=== PATIENT | female | born 1950 | race American Indian/Alaskan Native ===

== ENCOUNTER 2019-11-30 16:29 | Emergency (ER) | payer OTHER, BC ==
[2019-11-30 16:46] VITALS: BP 141/75; PULSE 71; TEMP 98; BMI 25.6
[2019-11-30] MEDS ORDERED: ASPIRIN 81 MG CHEWABLE TABLETS PO ONE (16:52)
[2019-11-30] MEDS ORDERED: ASPIRIN 81 MG CHEWABLE TABLETS ONE (17:33)
[2019-11-30 17:43] LABS: BASO % 0.9 % (0-2.0); HEMATOCRIT 35.2 % (32.4-45.2); LYMPH % 43.3 % (8-40); MCH 29.2 pg (25.7-33.7); MEAN CELL VOLUME 85.9 fl (80-96); MEAN PLT VOLUME 8.3 fl (7.5-11.1); MONO % 7.2 % (3.8-10.2); NEUT % 47.6 % (42.8-82.8); PLATELET COUNT 274 K/MM3 (134-434); RDW 12.4 % (11.6-15.6); WHITE BLOOD COUNT 7.6 K/mm3 (4.0-10.8)
--- NOTE | 2019-11-30 17:48 | PDOC ---
Documentation entered by Kaylyn Hdz SCRIBE, acting as scribe for Fatimah Sanchez MD. Fatimah Sanchez MD: This documentation has been prepared by the [email or web address], Kaylyn Hdz SCRIBE, under my direction and personally reviewed by me in its entirety. I confirm that the documentation accurately reflects all work, treatment, procedures, and medical decision making performed by me. History of Present Illness - General Chief Complaint: Chest Pain Stated Complaint: CHEST PAIN X 3 DAYS Time Seen by Provider: 11/30/19 16:34 History Source: Patient Exam Limitations: No Limitations - History of Present Illness Initial Comments: 11/30/19 17:07 The patient is a 69-year-old female with a past medical history significant for HTN, HLD, hypothyroidism, and daily use of 81mg ASA (reports taking it today) who presents to the emergency department with chest pain. The patient presents with 3 days of constant chest pain associated with back pain and shortness of breath, which is aggravated with ambulation. The patient describes the pain as poking in quality. The patient reports taking Tums and Tylenol for the symptoms with pain improvement during the night time, however, states the pain presents again in the morning. The patient reports a recent stress test about a year ago, which was significant for carotid blockage. Denies prior similar pain. Allergies: shellfish derived. Social history: Denies current or history of tobacco use. PCP: Dr. Rachana Henry. Past History - Medical History Allergies/Adverse Reactions: Allergies Allergy/AdvReac Type Severity Reaction Status Date / Time shellfish derived Allergy Verified 11/30/19 16:31 Home Medications: Ambulatory Orders Aspirin [ASA -] 81 mg PO DAILY 11/30/19 Chlorthalidone 12.5 mg PO DAILY 11/30/19 Levothyroxine Sodium [Synthroid] 88 mcg PO DAILY 11/30/19 Rosuvastatin Calcium [Crestor] 20 mg PO DAILY 11/30/19 Review of Systems - Review of Systems Able to Perform ROS?: Yes Comments:: 11/30/19 17:07 GENERAL/CONSTITUTIONAL: No fever or chills. No weakness. HEAD, EYES, EARS, NOSE AND THROAT: No change in vision. No ear pain or discharge. No sore throat. CARDIOVASCULAR: +chest pain. +shortness of breath. RESPIRATORY: No cough, wheezing, or hemoptysis. GASTROINTESTINAL: No nausea, vomiting, diarrhea or constipation. GENITOURINARY: No dysuria, frequency, or change in urination. MUSCULOSKELETAL: +back pain. No joint or muscle swelling or pain. No neck pain. SKIN: No rash NEUROLOGIC: No headache, vertigo, loss of consciousness, or change in strength/sensation. ENDOCRINE: No increased thirst. No abnormal weight change. HEMATOLOGIC/LYMPHATIC: No anemia, easy bleeding, or history of blood clots. ALLERGIC/IMMUNOLOGIC: No hives or skin allergy. *Physical Exam - Physical Exam 11/30/19 17:15 GENERAL: Awake, alert, and fully oriented, in no acute distress HEAD: No signs of trauma EYES: PERRLA, EOMI, sclera anicteric, conjunctiva clear ENT: Auricles normal inspection, hearing grossly normal, nares patent, oropharynx clear without exudates. Moist mucosa NECK: Normal ROM, supple, no lymphadenopathy, JVD, or masses LUNGS: Breath sounds equal, clear to auscultation bilaterally. No wheezes, and no crackles HEART: Regular rate and rhythm, normal S1 and S2, no murmurs, rubs or gallops ABDOMEN: Soft, nontender, normoactive bowel sounds. No guarding, no rebound. EXTREMITIES: Normal range of motion, no edema. NEUROLOGICAL: Cranial nerves II through XII grossly intact. Normal speech, normal gait SKIN: Warm, Dry, normal turgor, no rashes or lesions noted. ED Treatment Course - LABORATORY CBC & Chemistry Diagram: 11/30/19 17:15 11/30/19 17:15 Medical Decision Making - Medical Decision Making 11/30/19 17:32 Pt presents to the ED complaining of a three day history of constant chest pain radiating to the back. Currently pain is minimal. EKG is normal. Patient reports negative stress test one year ago. Will check cardiac enzymes and likely discharge home if enzymes are negative. Discharge - Discharge Information Problems reviewed: Yes Clinical Impression/Diagnosis: Chest pain Qualifiers: Chest pain type: other chest pain Qualified Code(s): R07.89 - Other chest pain; R07.8 - Other chest pain Condition: Good Disposition: HOME - Admission No - Follow up/Referral Referrals: Alex Henry MD [Primary Care Provider] - - Patient Discharge Instructions Patient Printed Discharge Instructions: DI for Chest Pain Additional Instructions: you came to the ED for chest pain. we did and EKG and blood work in the ED which was normal. we did not discover the cause of your pain in the Ed, so you must follow up with your PCP. if you have worsening pain or shortness of breath, you should return to the ED immediately. 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 - Post Discharge Activity
[2019-11-30 17:52] LABS: BILIRUBIN,TOTAL 0.4 mg/dl (0.2-1); CALCIUM 9.1 mg/dl (8.5-10); CREATININE 0.7 mg/dl (0.55-1.3); POTASSIUM 3.2 mmol/L (3.5-5.1); TOT PROT 6.7 g/dl (6.4-8.2)
--- NOTE | 2019-12-01 09:41 | EKG ---
Test Reason : Blood Pressure : / mmHG Vent. Rate : 062 BPM Atrial Rate : 062 BPM P-R Int : 158 ms QRS Dur : 098 ms QT Int : 456 ms P-R-T Axes : 060 057 051 degrees QTc Int : 462 ms NORMAL SINUS RHYTHM NORMAL ECG NO PREVIOUS ECGS AVAILABLE Confirmed by Nilsa Garvin ([id number]) on 12/01/2019 9:40:59 AM Referred By: DR VERDUZCO Confirmed By:Nilsa Garvin
== END 2019-11-30 18:39 | disposition home or self-care (01) ==
LOC: FER 16:29 → SUPCPDRO 16:29 → FER 18:39
DX: R07.89 Other chest pain (principal)
CPT/HCPCS: 36415; 71046-TC-FY; 80053; 82550; 82553; 84484; 85025; 93005; 99285-25

== ENCOUNTER 2023-02-23 04:08 | Day surgery (SDC) | payer OTHER, BC ==
[2023-02-21 17:02] VITALS: BMI 26.2
[~2023-02-23 04:08] MED LIST: DEXAMETHASONE SOD PHOSPHATE 10 MG/1 ML VIAL IVPUSH ONE; IOHEXOL 180 MG/1 ML ML IJ ONE; LIDOCAINE HCL 1% PRESERVATIVE FREE - 30ML VIAL IJ ONE
[2023-02-23] MEDS ORDERED: DEXAMETHASONE SOD PHOSPHATE 10 MG/1 ML VIAL ONE (07:18)
[2023-02-23] MEDS ORDERED: LIDOCAINE HCL/PF 1% SDV 5ML VIAL ONE (07:18)
[2023-02-23 08:15] VITALS: RESP 18; TEMP 97.8
[2023-02-23] MEDS ORDERED: DEXAMETHASONE SOD PHOSPHATE 10 MG/1 ML VIAL IVPUSH ONE (09:37)
[2023-02-23] MEDS ORDERED: IOHEXOL 180 MG/1 ML ML IJ ONE ×2 (09:37)
[2023-02-23] MEDS ORDERED: LIDOCAINE HCL 1% PRESERVATIVE FREE - 30ML VIAL IJ ONE (09:37)
[2023-02-23 10:41] VITALS: BP 125/50; PULSE 55
[2023-02-23] MEDS ORDERED: ACETAMINOPHEN 500 MG TABLET (FP) PO PRN (10:41)
== END 2023-02-23 10:25 | disposition home or self-care (01) ==
LOC: JASU-SURG 04:08
PROVIDERS: ATTEND Pain Medicine Pain Medicine
PROC: 3E0R3BZ Introduction of Anesthetic Agent into Spinal Canal, Percutaneous Approach (ICD-10-PCS; 2023-02-23)
PROC: 3E0R33Z Introduction of Anti-inflammatory into Spinal Canal, Percutaneous Approach (ICD-10-PCS; principal; 2023-02-23 10:00)
DX: M54.16 Radiculopathy, lumbar region (principal)
CPT/HCPCS: 76000-TC-FY; J1100

== ENCOUNTER 2023-03-27 04:26 | Day surgery (SDC) | payer OTHER, BC ==
[2023-03-26 15:00] VITALS: BMI 26.2
[~2023-03-27 04:26] MED LIST changes: -LIDOCAINE HCL 1% PRESERVATIVE FREE - 30ML VIAL IJ ONE
[2023-03-27] MEDS ORDERED: DEXAMETHASONE SOD PHOSPHATE 10 MG/1 ML VIAL ONE (07:17)
[2023-03-27] MEDS ORDERED: LIDOCAINE HCL/PF 1% SDV 5ML VIAL ONE (07:17)
[2023-03-27] MEDS ORDERED: ACETAMINOPHEN 500 MG TABLET (FP) PO PRN (08:52)
[2023-03-27] MEDS ORDERED: LIDOCAINE HCL 1% PRESERVATIVE FREE - 30ML VIAL IJ ONE (09:59)
[2023-03-27] MEDS ORDERED: IOHEXOL 180 MG/1 ML ML IJ ONE (10:03)
[2023-03-27] MEDS ORDERED: DEXAMETHASONE SOD PHOSPHATE 10 MG/1 ML VIAL IVPUSH ONE (10:05)
[2023-03-27 10:38] VITALS: RESP 18
[2023-03-27 11:05] VITALS: BP 119/64; PULSE 67; TEMP 97.8
== END 2023-03-27 10:48 | disposition home or self-care (01) ==
LOC: JASU-ENDO 04:26 → JASU-SURG 04:26
PROVIDERS: ATTEND Pain Medicine Pain Medicine
PROC: 3E0R3BZ Introduction of Anesthetic Agent into Spinal Canal, Percutaneous Approach (ICD-10-PCS; 2023-03-27)
PROC: 3E0R33Z Introduction of Anti-inflammatory into Spinal Canal, Percutaneous Approach (ICD-10-PCS; principal; 2023-03-27 10:15)
DX: M54.16 Radiculopathy, lumbar region (principal)
CPT/HCPCS: 76000-TC-FY; J1100

== ENCOUNTER 2023-04-29 01:44 | Emergency (ER) | payer OTHER, BC ==
[2023-04-29] MEDS ORDERED: SODIUM CHLORIDE 0.9% 500 ML INFUS.BAG IV ONE (01:51)
[2023-04-29 01:52] VITALS: BP 151/83; PULSE 94; RESP 19; TEMP 98.6; BMI 26.2
[2023-04-29] MEDS ORDERED: ACETAMINOPHEN INJECTION 100 ML IVPB ONE (03:08)
[2023-04-29 03:58] LABS: HEMATOCRIT 38.7 % (32.4-45.2); HEMOGLOBIN 12.9 GM/dL (10.7-15.3); MCHC 33.4 g/dl (32.0-36.0); MEAN CELL VOLUME 86.9 fl (80-96); MEAN PLT VOLUME 8.6 fl (7.5-11.1); PLATELET COUNT 345 10^3/uL (134-434); RBC 4.45 M/mm3 (3.60-5.2); RDW 13.9 % (11.6-15.6); WHITE BLOOD COUNT 10.7 K/mm3 (4.0-10.0)
[2023-04-29 04:20] LABS: POTASSIUM 3.9 mmol/L (3.5-5.1)
[2023-04-29 04:21] LABS: CALCIUM 8.5 mg/dL (8.5-10.1)
[2023-04-29 04:22] LABS: ALBUMIN 3.7 g/dl (3.4-5.0); BLOOD UREA NITROGEN 9.9 mg/dL (7-18)
[2023-04-29 04:25] LABS: CREATININE 0.8 mg/dL (0.55-1.3)
[2023-04-29 04:26] LABS: BILIRUBIN,TOTAL 0.5 mg/dL (0.2-1); TOT PROT 7.2 g/dl (6.4-8.2)
[2023-04-29] MEDS ORDERED: ACETAMINOPHEN 1000 MG/100 ML BAG IVPB ONE (04:34)
[2023-04-29] MEDS ORDERED: KETOROLAC TROMETHAMINE 30 MG/1 ML VIAL ONE (04:41)
[2023-04-29] MEDS ORDERED: KETOROLAC TROMETHAMINE 30 MG/1 ML VIAL IVPUSH ONE (04:43)
== END 2023-04-29 05:04 | disposition home or self-care (01) ==
LOC: FER 01:44
PROC: 3E0333Z Introduction of Anti-inflammatory into Peripheral Vein, Percutaneous Approach (ICD-10-PCS; principal; 2023-04-29)
PROC: 3E033NZ Introduction of Analgesics, Hypnotics, Sedatives into Peripheral Vein, Percutaneous Approach (ICD-10-PCS; 2023-04-29)
DX: R05.9 Cough, unspecified (principal); R07.81 Pleurodynia; M54.6 Pain in thoracic spine; U07.1 COVID-19
CPT/HCPCS: 0241U-QW; 36415; 71045-TC-FY; 80053; 82550; 84484; 85027; 87040; 99284-25